=== PATIENT | female | born 2000 | race African-American/Black ===

== ENCOUNTER 2021-02-10 15:57 | Emergency (ER) | payer BC, OTHER ==
[~2021-02-10] VITALS: Ht 165.1 cm; Wt 63.6 kg
--- NOTE | 2021-02-10 16:49 | REP ---
INDICATION: left hand/wrist pain; blunt trauma COMPARISON: None. TECHNIQUE: Four views left wrist. FINDINGS: There is a chip fracture of the base of the 5th metacarpal, lateral aspect. No other acute fracture, dislocation or intrinsic bone disease is seen. IMPRESSION: Chip fracture base of 5th metacarpal. <Electronically signed by Aftab Barajas > 02/10/21 [id number]
--- NOTE | 2021-02-10 16:53 | REP ---
INDICATION: left hand/wrist pain; blunt trauma COMPARISON: None. TECHNIQUE: Four views left hand. FINDINGS: There is a chip fracture of the lateral base of the 5th metacarpal. There is no other evidence of acute fracture, dislocation or intrinsic bone disease. IMPRESSION: Chip fracture base of 5th metacarpal. <Electronically signed by Aftab Barajas > 02/10/21 [id number]
[2021-02-10 17:46] VITALS: BP 130/72
== END 2021-02-10 17:51 | disposition home or self-care (01) ==
LOC: EDBD 15:57 → M ED 15:57
DX: S62.317A Displaced fracture of base of fifth metacarpal bone, left hand, initial encounter for closed fracture (principal); V03.10XA Pedestrian on foot injured in collision with car, pick-up truck or van in traffic accident, initial encounter; Y92.410 Unspecified street and highway as the place of occurrence of the external cause

== ENCOUNTER → 2021-02-17 | Outpatient (CLI) | payer BC, OTHER ==
--- NOTE | 2021-02-17 16:48 | REP ---
INDICATION: UNSP FRACTURE OF FIFTH METACARPAL BONE, LEFT, SEQUELA. COMPARISON: Comparison radiographs February 10, 2021.. TECHNIQUE: AP and lateral views of the left hand are obtained. FINDINGS: Head AP and lateral views of the left hand again demonstrated chip fracture along the radial surface of the base of the 5th metacarpal unchanged in position from the [id number] prior study. No other fracture is seen. IMPRESSION: Chip fracture at the base of the 5th metacarpal as above. <Electronically signed by Lance Villegas > 02/17/21 [id number]
--- NOTE | 2021-02-17 16:50 | REP ---
INDICATION: UNSP FRACTURE OF FIFTH METACARPAL BONE, LEFT, SEQUELA. COMPARISON: Comparison wrist radiographs are from February 10, 2021.. TECHNIQUE: Four views of the left wrist are obtained. FINDINGS: Four views of the left wrist again demonstrate a chip fracture along the radial aspect of the proximal end of the 5th metacarpal. This is unchanged when compared with the February 10, 2021 radiographs. No definite periosteal reaction. No other fracture is seen. Joint spaces are preserved. Alignment is normal. IMPRESSION: Chip fracture at the base of the 5th metacarpal. <Electronically signed by Lance Villegas > 02/17/21 [id number]
== END ==
LOC: M SOG 13:53
PROVIDERS: ATTEND Orthopaedic Surgery
DX: S62.307S Unspecified fracture of fifth metacarpal bone, left hand, sequela (principal)

== ENCOUNTER → 2021-04-18 | Outpatient (CLI) | payer OTHER, BC ==
--- NOTE | 2021-04-18 11:25 | REP ---
INDICATION: FX FOLLOW-UP. COMPARISON: 02/17/2021 TECHNIQUE: Four views FINDINGS: The tiny fracture seen involving the lateral aspect of the base of the 5th metacarpal is no longer definitively visualized. There is no acute fracture. IMPRESSION: Healed fracture as described above <Electronically signed by Ko Moulton > 04/18/21 [id number]
== END ==
LOC: M SOG 10:29
PROVIDERS: ATTEND Orthopaedic Surgery
DX: S62.337A Displaced fracture of neck of fifth metacarpal bone, left hand, initial encounter for closed fracture (principal); X58.XXXA Exposure to other specified factors, initial encounter; Y92.9 Unspecified place or not applicable; Y99.9 Unspecified external cause status

== ENCOUNTER → 2021-09-28 | Outpatient (REF) | payer OTHER, BC, MEDICAID | LOC: M SFHCWAGY 11:47 | PROVIDERS: ATTEND Advanced Practice Midwife | DX: Z12.4 Encounter for screening for malignant neoplasm of cervix (principal); R87.610 Atypical squamous cells of undetermined significance on cytologic smear of cervix (ASC-US) | CPT/HCPCS: 87624; G0123 ==

== ENCOUNTER 2022-03-23 18:48 | Emergency (ER) | payer OTHER ==
[~2022-03-23] VITALS: Ht 165.1 cm; Wt 58.2 kg
[2022-03-23 18:49] VITALS: BP 122/67
== END 2022-03-23 19:49 | disposition left against medical advice (07) ==
LOC: M ED 18:48
DX: Z53.29 Procedure and treatment not carried out because of patient's decision for other reasons (principal)

== ENCOUNTER → 2022-03-23 | Outpatient (CLI) | payer OTHER ==
[2022-03-23 15:19] LABS: BASO % 0.5 % (0.0-1.0); EOS # 0.1 10^3/uL (0.0-0.5); EOS % 1.9 % (0.0-3.0); HEMATOCRIT 41.2 % (36.0-47.0); HEMOGLOBIN 13.9 g/dl (12.0-15.5); LYMPH # 2.2 10^3/uL (1.5-5.0); MEAN CORPUSCULAR HEMOGLOBIN 31.4 pg (27.0-33.0); MEAN CORPUSCULAR HGB CONC 33.7 g/dl (32.0-36.5); MEAN CORPUSCULAR VOLUME 93.2 fl (80.0-96.0); MONO # 0.4 10^3/uL (0.0-0.8); MONO % 7.2 % (2.0-8.0); NEUTROPHILS % 51.9 % (36.0-66.0); PLATELET COUNT, AUTOMATED 256 10^3/uL (150-450); RED BLOOD COUNT 4.42 10^6/uL (4.00-5.40); WHITE BLOOD COUNT 5.8 10^3/uL (4.0-10.0)
[2022-03-23 16:49] LABS: HEPATITIS C VIRUS ABY INDEX < 0.0 INDEX (<0.8); HIV 1&2 SCREEN CENTAUR NEGATIVE (NEGATIVE)
[2022-03-23 17:00] LABS: GC DNA AMPLIFICATION NEGATIVE (NEGATIVE)
== END ==
LOC: M PLALAB 14:00
PROVIDERS: ATTEND Advanced Practice Midwife
DX: Z34.01 Encounter for supervision of normal first pregnancy, first trimester (principal)

== ENCOUNTER 2022-04-03 14:10 | Outpatient (CLI) | payer BC, OTHER ==
[2022-04-03 14:05] VITALS: BP 115/57
[2022-04-03] MEDS ORDERED: cefTRIAXone SOD 1 GM in D5W MINI-BAG PLUS 50 ML IV SCH (14:30)
[2022-04-03 14:45] VITALS: BP 105/60
== END 2022-04-03 14:50 | disposition home or self-care (01) ==
LOC: M INFU 14:10
PROVIDERS: ATTEND Advanced Practice Midwife
DX: O23.41 Unspecified infection of urinary tract in pregnancy, first trimester (principal)

== ENCOUNTER 2022-04-03 15:50 | Emergency (ER) | payer OTHER ==
[~2022-04-03] VITALS: Ht 165.1 cm; Wt 58.1 kg
[2022-04-03 15:50] VITALS: BP 116/60
== END 2022-04-03 20:09 | disposition left against medical advice (07) ==
LOC: M ED 15:50
DX: Z53.21 Procedure and treatment not carried out due to patient leaving prior to being seen by health care provider (principal)

== ENCOUNTER 2022-04-04 11:15 | Emergency (ER) | payer OTHER ==
[~2022-04-04] VITALS: Ht 165.1 cm; Wt 58.8 kg
[2022-04-04 16:53] LABS: BASO % 0.2 % (0.0-1.0); EOS # 0.1 10^3/uL (0.0-0.5); HEMATOCRIT 38.1 % (36.0-47.0); HEMOGLOBIN 12.8 g/dl (12.0-15.5); LYMPH # 1.8 10^3/uL (1.5-5.0); LYMPH % 32.5 % (24.0-44.0); MEAN CORPUSCULAR HEMOGLOBIN 30.6 pg (27.0-33.0); MEAN CORPUSCULAR HGB CONC 33.6 g/dl (32.0-36.5); MEAN CORPUSCULAR VOLUME 91.1 fl (80.0-96.0); MONO # 0.4 10^3/uL (0.0-0.8); MONO % 7.9 % (2.0-8.0); NEUTROPHILS # 3.1 10^3/uL (1.5-8.5); NEUTROPHILS % 57.2 % (36.0-66.0); PLATELET COUNT, AUTOMATED 225 10^3/uL (150-450); RED BLOOD COUNT 4.18 10^6/uL (4.00-5.40); WHITE BLOOD COUNT 5.4 10^3/uL (4.0-10.0)
[2022-04-04 16:59] LABS: APPEARANCE, URINE CLEAR (CLEAR); BACTERIA, URINE AUTO 1+ (NEGATIVE); BILIRUBIN, URINE AUTO NEGATIVE (NEGATIVE); BLOOD, URINE BLOOD 1+ (NEGATIVE); COLOR, URINE STRAW (YELLOW); GLUCOSE, URINE (UA) AUTO NEGATIVE (NEGATIVE); KETONE, URINE AUTO NEGATIVE (NEGATIVE); LEUKOCYTE ESTERASE, URINE AUTO NEGATIVE (NEGATIVE); NITRITE, URINE AUTO NEGATIVE (NEGATIVE); PROTEIN, URINE AUTO NEGATIVE (NEGATIVE); RBC, URINE AUTO 1 /HPF (0-3); SPECIFIC GRAVITY URINE AUTO 1.003 (1.002-1.035); SQUAMOUS EPITHELIAL CELL UR AU 0 /HPF (0-6); UROBILINOGEN, URINE AUTO 0.2 mg/dL (0.0-2.0); WBC, URINE AUTO 1 /HPF (0-3)
[2022-04-04 18:50] VITALS: BP 128/65
== END 2022-04-04 19:00 | disposition home or self-care (01) ==
LOC: M ED 11:15
DX: O20.8 Other hemorrhage in early pregnancy (principal); Z3A.09 9 weeks gestation of pregnancy; Z91.013 Allergy to seafood

== ENCOUNTER → 2022-05-08 | Outpatient (CLI) | payer OTHER | LOC: M WHC 15:35 | PROVIDERS: ATTEND Obstetrics & Gynecology | DX: Z34.01 Encounter for supervision of normal first pregnancy, first trimester (principal); Z53.8 Procedure and treatment not carried out for other reasons ==

== ENCOUNTER → 2022-05-09 | Outpatient (CLI) | payer OTHER | LOC: M PLALAB 09:14 | PROVIDERS: ATTEND Obstetrics & Gynecology | DX: Z53.9 Procedure and treatment not carried out, unspecified reason (principal) ==